=== PATIENT | female | born 1970 | race Caucasian/White ===

== ENCOUNTER 2018-08-05 07:15 | Day surgery (SDC) | payer BC, SELFPAY ==
[2018-08-05 07:34] VITALS: BP 120/69; PULSE 72; RESP 16; TEMP 36.7; O2SAT 96
[2018-08-05] MEDS: Povidone-Iodine Soln. 118 ML BTL TP (07:55)
[2018-08-05] MEDS: Lactated Ringers 1,000 ML 80 ML IV (07:56)
[2018-08-05] MEDS: Lidocaine 1% Pres-Free 5 ML VIAL (09:28)
[2018-08-05] MEDS: Bupivacaine 0.25% Pres-Free 30 ML VIAL (09:28)
[2018-08-05] MEDS: Dexamethasone 4 MG/ML VIAL (10:31)
--- NOTE | 2018-08-05 10:42 | W.PM.DSUDISC ---
Discharge Plan Disposition Patient Disposition: HOME Condition: Good Discharge Details Reason For Visit: bunionectomy Attending Provider: Nirmal Navarro Primary Care Provider: OMER COELHO Home Meds and New Rx's Prescriptions: No Action spironolactone 100 mg Tablet 200 mg PO DAILY RF: 0 omeprazole 40 mg Capsule,Delayed Release(Dr/Ec) 20 mg PO DAILY RF: 0 bismuth subsalicylate 262 mg Tablet 3 tab PO DIRECTED PRNRF: 0 cholecalciferol (vitamin D3) [Vitamin D3] 400 unit Capsule 400 RF: 0 Discharge Orders Discharge Orders: Discharge Order (Routine); Ordered 08/05/18 Ordered By: Nirmal Navarro DS: Diagnosis Discharge Diagnosis (1) Hallux valgus (acquired), left foot: Status: Acute
[2018-08-05] MEDS: HYDROcodone 5/Acetaminophen 325 TAB PO (11:05)
[2018-08-05 11:19] VITALS: BP 100/60; PULSE 69; RESP 14; TEMP 36.3; O2SAT 96
--- NOTE | 2018-08-05 11:27 | ROE_ITS ---
DATE OF PROCEDURE: August 05, 2018 PREOPERATIVE DIAGNOSIS: Symptomatic left bunion deformity. POSTOPERATIVE DIAGNOSIS: Same. PROCEDURE: Thee-type bunionectomy with internal screw fixation utilizing Synthes 2.7 and a 3.5 cor tical screw. SURGEON: Hermila LehmanPFerdinand. ANESTHESIA: Monitored Anesthesia Care; local block first ray. ANESTHESIA PROVIDER: Christopher Davila CRNA OPERATIVE INDICATIONS: 47-year-old female with progressive pain associated with a left bunion deform ity interfering with shoe gear and comfortable ambulation. Nonsurgical treatment has failed to provi de lasting relief of symptoms. She understands risks and complications pertaining to pain, scarring, infection, stiffness of the joint, overcorrection, undercorrection, malunion, nonunion, delayed unio n of the osteotomy, difficulty with the software loosening potentially requiring its removal, revisio nal procedures. Informed consent has been obtained. No promises made to final outcome of surgery. REPORT OF OPERATION: Maria Elena was brought to the operative suite, placed in the supine position, left foot prepped and draped in the usual sterile podiatric fashion. Anesthesia being achieved, the left foot was exsanguinated, well-padded ankle tourniquet inflated 250 mmHg. Attention was directed to the dorsal aspect of the first MPJ where a 5 cm incision was made medial pa rallel to the EHL tendon. The incision was deepened in controlled depth fashion; hemostasis acquired with electrocautery as needed. Dissection was carried down to the joint capsule. A medial capsulo rrhaphy was performed, inverted-L format. The joint capsule was opened. The first MPJ was inspected . Hypertrophy was appreciated along the medial and dorsal aspects of the first metatarsal head. Wit h power instrumentation this hypertrophy was resected. At this time a lateral dissection was perform ed and a lateral capsulotomy and adductor tendon release performed. Attention was directed medially to the first metatarsal head where an offset V-osteotomy was performed. The head was translocated la terally, impacted, stabilized with a .045 K-wire. Fixation was achieved with a 2.7 Synthes cortical screw, 16 mm in length. A second screw was thrown, spun out, and I went to a 3.5 Synthes cortical sc rew with excellent stability. The temporary K-wire was removed. The medial shelf was resected; all rough and bony edges rasped smooth. Copious irrigation was performed. The joint capsule was closed with simple interrupted suture #3-0 Vicryl. The subcutaneous layer was closed with simple interrupte d suture #4-0 Vicryl. The subcuticular layer was closed with a continuous running #4-0 Monocryl. Taveras lf-inch Steri-Strips were applied over Mastisol. Four milligrams of Dexamethasone Phosphate was infu sed deeply into the wound. Xeroform gauze fluff compression dressings were applied. The tourniquet was released at fifty-seven minutes, vascularity returning immediately to all toes. Sharp and sponge counts were correct. The patient left the OR with vital signs stable, vascular status intact. She will be followed by me in the office next week.
== END 2018-08-05 11:43 | disposition home or self-care (01) ==
PROVIDERS: PCP Registered Nurse; Visit Provider Podiatrist
PROC: (CPT 28292; principal; 2018-08-05 09:30)
DX: M20.12 Hallux valgus (acquired), left foot (principal); M21.612 Bunion of left foot; M79.672 Pain in left foot
CPT/HCPCS: 28296; J0690; J1100; J2405

== ENCOUNTER 2019-02-07 15:07 | Outpatient (REF) | payer BC, SELFPAY ==
[2019-02-07 21:49] LABS: ALT 62 U/L (12-78); AST 33 U/L (15-37); Albumin 4.1 g/dL (3.4-5.0); Alkaline Phosphatase 96 U/L (46-116); Anion Gap 9.8 mmol/L (3-11); BUN 14 mg/dL (7-18); Bilirubin, Total 0.5 mg/dL (0.2-1.0); CO2 27.2 mmol/L (21.0-32.0); CREATININE 0.92 mg/dL (0.55-1.02); Calcium 9.1 mg/dL (8.5-10.1); Chloride 102 mmol/L (98-107); Cholesterol 276 mg/dL (50-200); Glucose 84 mg/dL (70-100); HDL Cholesterol 43 mg/dL (40-60); LDL CHOLESTEROL 180 mg/dL (<100); Potassium 4.2 mmol/L (3.5-5.1); Sodium 139 mmol/L (136-145); Total Protein 7.6 g/dL (6.4-8.2); Triglyceride 321 mg/dL (30-150)
== END 2019-02-07 15:27 ==
LOC: NCHCN 15:07
PROVIDERS: PCP Registered Nurse; Visit Provider Registered Nurse
DX: K29.50 Unspecified chronic gastritis without bleeding (principal); E28.2 Polycystic ovarian syndrome; E66.9 Obesity, unspecified
CPT/HCPCS: 80053; 80061; 83721; 83735

== ENCOUNTER 2019-08-02 11:49 | Outpatient (REF) | payer BC, SELFPAY | END 2019-08-02 12:09 | LOC: NCHCN 11:49 | PROVIDERS: PCP Registered Nurse; Visit Provider Registered Nurse | DX: R53.83 Other fatigue (principal) | CPT/HCPCS: 82306 ==

== ENCOUNTER 2019-09-29 10:32 | Outpatient (REF) | payer BC, SELFPAY ==
[2019-10-01 10:12] LABS: Vitamin D 25 Total 30.8 ng/ml (30-100)
== END 2019-09-29 10:52 ==
LOC: NCHCN 10:32
PROVIDERS: PCP Registered Nurse; Visit Provider Registered Nurse
DX: E55.9 Vitamin D deficiency, unspecified (principal)
CPT/HCPCS: 82306

== ENCOUNTER 2020-06-05 21:24 | Outpatient (REF) | payer BC, SELFPAY ==
[2020-06-05 22:39] LABS: Anion Gap 8.8 mmol/L (3-11); BUN 13 mg/dL (7-18); CO2 27.2 mmol/L (21.0-32.0); CREATININE 0.91 mg/dL (0.55-1.02); Calcium 9.7 mg/dL (8.5-10.1); Chloride 102 mmol/L (98-107); Glucose 92 mg/dL (74-106); Potassium 4.6 mmol/L (3.5-5.1); Sodium 138 mmol/L (136-145)
[2020-06-05 22:50] LABS: Hemoglobin A1C 5.7 % (<5.7)
== END 2020-06-05 21:44 ==
LOC: NCHCN 21:24
PROVIDERS: PCP Registered Nurse; Visit Provider Registered Nurse
DX: Z00.00 Encounter for general adult medical examination without abnormal findings (principal); R53.83 Other fatigue; E66.9 Obesity, unspecified
CPT/HCPCS: 80048; 83036

== ENCOUNTER 2020-09-25 12:43 | Day surgery (SDC) | payer BC, SELFPAY ==
[2020-09-25 12:47] VITALS: BP 121/79; PULSE 70; RESP 18; TEMP 36.1; O2SAT 98
[2020-09-25] MEDS: Lactated Ringers 1,000 ML 80 ML IV (13:22)
[2020-09-25] MEDS: ceFAZolin 1 GM/50 ML BAG IVPB (14:26)
[2020-09-25] MEDS: Dexamethasone 4 MG/ML VIAL (14:53)
[2020-09-25] MEDS: Bupivacaine 0.5% Pres-Free 30 ML VIAL (14:53)
--- NOTE | 2020-09-25 15:02 | W.PM.DSUDISC ---
Discharge Plan Disposition Patient Disposition: HOME Condition: Good Discharge Details Reason For Visit: Removal of symptomatic hardware left first metatar Attending Provider: Nirmal Navarro Primary Care Provider: OMER COELHO Home Meds and New Rx's Prescriptions: Continued spironolactone 100 mg Tablet 200 mg PO DAILY RF: 0 omeprazole 40 mg Capsule,Delayed Release(Dr/Ec) 20 mg PO DAILY RF: 0 cholecalciferol (vitamin D3) [Vitamin D3] 400 unit Capsule 400 unit PO DAILY RF: 0 ibuprofen 600 mg Tablet 600 mg PO QID PRNRF: 0 albuterol 90 mcg/actuation Aerosol 180 mcg INHALATION Q4H PRN PRNRF: 0 Discharge Instructions Activity:: Elevate Remove Dressings/Wound Care:: Do Not Remove Shower/Bathe:: Cover Diet:: Normal Diet Discharge Orders Discharge Orders: Discharge Order (Routine); Ordered 09/25/20 Ordered By: Nirmal Navarro DS: Diagnosis Discharge Diagnosis (1) Fixation hardware in foot: Status: Acute
--- NOTE | 2020-09-25 15:06 | W.PM.OP ---
Date of service: 09/25/20 Time of Service: 15:06 Operative Note Operative Note DATE OF PROCEDURE: 09/25/20 PRE-OP DIAGNOSIS: Symptomatic hardware first metatarsal left foot PROCEDURE: Removal of Synthes cortical screws 3.11 2.7 mm first metatarsal left foot SURGEON: Nirmal Navarro ANESTHESIA: local ESTIMATED BLOOD LOSS: 1 PATHOLOGY: none sent TOURNIQUET TIME: 0 COMPLICATIONS: None Patient was transported to: same day Patient's condition: stable Indications: 49-year-old female approximately 2 years status post bunionectomy of the left foot with retained cortical screws which are causing discomfort interfering with ambulation and shoe gear. She is opted for removal of the hardware. She understands potential risk and complications pertaining to pain, scarring, infection, persistent discomfort in the region. Informed consents been obtained no promises made as to the final outcome of surgery. Procedure Description: Maria Elena was brought to the operative suite placed in supine position with the left foot was prepped and draped in the usual sterile podiatric fashion. Anesthesia was obtained using a total of 9 cc 1% lidocaine with epinephrine and 0.5% Marcaine plain. A 1 cm incision was placed midline over the first metatarsal at the surgical neck level. The incision was deepened in controlled depth fashion. Hemostasis was acquired with compression. A Lawrence elevator was then used to remove the periosteum from the neck of the first metatarsal and the hardware was identified. Both screws were removed without difficulty. The wound was copiously irrigated. The subcutaneous layer was repaired with simple interrupted suture 4-0 Vicryl and the skin was coapted with a combination of horizontal mattress and simple interrupted suture of 4-0 nylon. 4 mg dexamethasone phosphate was infused deeply within the wound. Xeroform gauze fluff compression dressings were applied. Maria Elena left the OR with vital signs stable vascular status intact, sharps and sponge counts were correct. She will be followed by myself in the office next week.
== END 2020-09-25 15:30 | disposition home or self-care (01) ==
PROVIDERS: PCP Registered Nurse; Visit Provider Podiatrist
PROC: (CPT 20680; principal; 2020-09-25 14:15)
DX: T84.84XA Pain due to internal orthopedic prosthetic devices, implants and grafts, initial encounter (principal); M79.672 Pain in left foot
CPT/HCPCS: 20680; J0690; J1100

== ENCOUNTER 2020-12-16 09:28 | Outpatient (REF) | payer BC, SELFPAY ==
[2020-12-16 13:47] LABS: Hemoglobin A1C 5.5 % (<5.7)
== END 2020-12-16 09:29 | disposition home or self-care (01) ==
LOC: NCHCN 09:28
PROVIDERS: PCP Registered Nurse; Visit Provider Registered Nurse
DX: R73.03 Prediabetes (principal)
CPT/HCPCS: 83036

== ENCOUNTER 2021-03-26 10:24 | Outpatient (REF) | payer BC, SELFPAY ==
[2021-03-26 13:40] LABS: ALT 35 U/L (14-59); AST 23 U/L (15-37); Albumin 4.1 g/dL (3.4-5.0); Alkaline Phosphatase 85 U/L (46-116); BUN 16 mg/dL (7-18); Bilirubin, Total 0.3 mg/dL (0.2-1.0); CREATININE 0.9 mg/dL (0.55-1.02); Calcium 9.3 mg/dL (8.5-10.1); Calculated LDL 185 mg/dL (<100); Chloride 105 mmol/L (98-107); Cholesterol 273 mg/dL (<200); Glucose 98 mg/dL (74-106); HDL Cholesterol 50 mg/dL (40-60); Potassium 4.4 mmol/L (3.5-5.1); Sodium 141 mmol/L (136-145); Total Protein 7.6 g/dL (6.4-8.2); Triglyceride 193 mg/dL (<150)
[2021-03-26 13:58] LABS: Amylase 51 U/L (25-115); Lipase 102 U/L (73-393)
== END 2021-03-26 10:25 | disposition home or self-care (01) ==
LOC: NCHCN 10:24
PROVIDERS: PCP Registered Nurse; Visit Provider Registered Nurse
DX: Z00.00 Encounter for general adult medical examination without abnormal findings (principal); R10.9 Unspecified abdominal pain; Z13.220 Encounter for screening for lipoid disorders
CPT/HCPCS: 80053; 80061; 83690; 82150

== ENCOUNTER 2022-05-14 16:13 | Outpatient (REF) | payer BC, SELFPAY ==
[2022-05-14 22:00] LABS: Hemoglobin A1C 5.8 % (<5.7)
[2022-05-14 22:05] LABS: ALT 32 U/L (14-59); AST 20 U/L (15-37); Albumin 4.1 g/dL (3.4-5.0); Alkaline Phosphatase 88 U/L (46-116); Anion Gap 10.9 mmol/L (3-11); BUN 16 mg/dL (7-18); Bilirubin, Total 0.3 mg/dL (0.2-1.0); CO2 26.1 mmol/L (21.0-32.0); Calcium 9.3 mg/dL (8.5-10.1); Calculated LDL 195 mg/dL (<100); Chloride 103 mmol/L (98-107); Cholesterol 288 mg/dL (<200); Estimated GFR 58.93 (mL/min/1.73m2); Glucose 93 mg/dL (74-106); HDL Cholesterol 43 mg/dL (40-60); Sodium 140 mmol/L (136-145); Total Protein 7.5 g/dL (6.4-8.2); Triglyceride 250 mg/dL (<150)
[2022-05-18 11:40] LABS: Hepatitis C Ab w Rflx HCV PCR Negative (Negative)
== END 2022-05-14 16:14 | disposition home or self-care (01) ==
LOC: NCHCN 16:13
PROVIDERS: PCP Registered Nurse; Visit Provider Registered Nurse
DX: R73.03 Prediabetes (principal); E78.00 Pure hypercholesterolemia, unspecified; Z11.59 Encounter for screening for other viral diseases; H81.09 Meniere's disease, unspecified ear
CPT/HCPCS: 80053; 80061; 86803; 83036

== ENCOUNTER 2022-08-18 13:48 | Outpatient (REF) | payer BC, SELFPAY ==
[2022-08-18 14:48] LABS: Calculated LDL 100 mg/dL (<100); Cholesterol 192 mg/dL (<200); HDL Cholesterol 48 mg/dL (40-60); Triglyceride 222 mg/dL (<150)
== END 2022-08-18 13:49 | disposition home or self-care (01) ==
LOC: NCHCN 13:48
PROVIDERS: PCP Registered Nurse; Visit Provider Registered Nurse
DX: E78.5 Hyperlipidemia, unspecified (principal)
CPT/HCPCS: 80061

== ENCOUNTER 2023-06-09 11:36 | Outpatient (REF) | payer BC, SELFPAY ==
[2023-06-09 16:01] LABS: Anion Gap 8.2 mmol/L (3-11); BUN 17 mg/dL (7-18); CO2 26.8 mmol/L (21.0-32.0); CREATININE 1.1 mg/dL (0.55-1.02); Calcium 9.3 mg/dL (8.5-10.1); Calculated LDL 100 mg/dL (<100); Chloride 101 mmol/L (98-107); Cholesterol 184 mg/dL (<200); Estimated GFR 61.22 (mL/min/1.73m2); Glucose 99 mg/dL (74-106); HDL Cholesterol 49 mg/dL (40-60); Potassium 4.4 mmol/L (3.5-5.1); Sodium 136 mmol/L (136-145); Triglyceride 176 mg/dL (<150)
[2023-06-09 16:13] LABS: Hemoglobin A1C 5.7 % (<5.7)
== END 2023-06-09 11:37 | disposition home or self-care (01) ==
LOC: NCHCN 11:36
PROVIDERS: PCP Registered Nurse; Visit Provider Nurse Practitioner Family
DX: E28.2 Polycystic ovarian syndrome (principal); Z00.00 Encounter for general adult medical examination without abnormal findings
CPT/HCPCS: 80048; 80061; 83036

== ENCOUNTER 2023-10-26 16:10 | Outpatient (REF) | payer BC, SELFPAY ==
[2023-10-26 22:07] LABS: HCT 43.4 % (36.0-46.0); HGB 14.6 g/dL (11.2-15.7); MCHC 33.6 % (32.0-36.0); MCV 89 fL (80-95); MPV 9.6 fL (8.0-11.0); Platelet Count 340 10^3/uL (130-400); RBC 4.86 10^6/uL (3.93-5.22); RDW 12.8 % (11.7-14.6); RDW-SD 42.1 fL; WBC 11.36 10^3/uL (4.4-10.8)
[2023-10-26 22:28] LABS: ALT 45 U/L (14-59); AST 27 U/L (15-37); Albumin 4.3 g/dL (3.4-5.0); Alkaline Phosphatase 101 U/L (46-116); Anion Gap 12.6 mmol/L (3-11); BUN 13 mg/dL (7-18); Bilirubin, Total 0.5 mg/dL (0.2-1.0); CO2 24.4 mmol/L (21.0-32.0); Calcium 9.9 mg/dL (8.5-10.1); Chloride 104 mmol/L (98-107); Creatine Kinase 137 U/L (26-192); Estimated GFR 68.63 (mL/min/1.73m2); Glucose 104 mg/dL (74-106); LDH 212 U/L (81-234); Potassium 4.1 mmol/L (3.5-5.1); Sodium 141 mmol/L (136-145); Total Protein 8.2 g/dL (6.4-8.2)
[2023-10-27 17:45] LABS: Rheumatoid Factor <8.6 IU/mL (<12.0)
[2023-10-28 09:06] LABS: Cyclic Citrullinated Peptide <2.5 U/mL (<5.0)
[2023-10-28 12:53] LABS: ANA Interpretation Negative (Negative)
== END 2023-10-26 16:11 | disposition home or self-care (01) ==
LOC: NCHCN 16:10
PROVIDERS: PCP Registered Nurse; Visit Provider Nurse Practitioner Family
DX: M13.0 Polyarthritis, unspecified (principal)
CPT/HCPCS: 80053; 82550; 85027; 86200; 83615; 86038; 86431

== ENCOUNTER 2023-10-29 12:21 | Outpatient (REF) | payer BC, SELFPAY ==
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
--- OUTSIDE RECORDS SUMMARY | 2023-10-29 12:23 | XMS_ITS | CCD ---
Author Name Unknown Address [address] [place] [address] [phone] Organization Unknown Address [address], [place] [id number] Care Team Providers Care Ict Security Specialist Name Role Phone YRN SANTOS Attending Physician [phone] SCOUT PERRY Er Physician [phone] RYAN Colon Registered Nurse [phone] PHILLIP Cleaning Registered Nurse [phone] Vital Signs Vital Sign Value Unit Date/Time Recent/Initial ? BMI (Body Mass Index) 39.31 kg/m^2 01/30/2023 18: 47 Initial VS Weight Measured 251 lbs 01/30/2023 18:47 Ini tial VS Height 67 in 01/30/2023 18:47 Initial VS BSA (Body Surface Area) 2.32 m^2 01/30/2023 1 8:47 Initial VS BP Systolic 131 mmHg 01/30/2023 18:47 Initial VS BP Diastolic 71 mmHg 01/30/2023 18:47 Initia l VS Respiratory Rate 18 bpm 01/30/2023 18:47 In itial VS Heart Rate 81 bpm 01/30/2023 18:47 Initial VS O2 % BldC Oximetry 99 % 01/30/2023 18:47 Initial VS Body Temperature 36 degrees 01/30/2023 18:47 In itial VS BP Systolic 116 mmHg 01/30/2023 20:32 Most Re cent VS BP Diastolic 93 mmHg 01/30/2023 20:32 Most R ecent VS Respiratory Rate 20 bpm 01/30/2023 20:[address] Recent VS Heart Rate 90 bpm 01/30/2023 20:32 Most Rec ent VS O2 % BldC Oximetry 97 % 01/30/2023 20:32 Most Recent VS Allergies Allergy Code Allergy Type Reaction Status [facility] 7393 Drug allergy SWELLING Active Procedures Unknown or Not Available. History of Immunizations Unknown or Not Available. Problems Unknown or Not Available. Results Unknown or Not Available. Active Medications Medications Administered During Visit Medication Dose Units Frequency Route Date/Time of Last Dose DIAZEPAM TABLET: 5MG 10 MG X1 PO 01/30/2023 20:30 PredniSONE TABLET: 20MG 40 MG X1 PO 01/30/2023 20:30 Encounters Encounter Diagnosis Diagnosis Code Start Date Low back pain [id number] 01/30/2023 Social History Smoking Status Code Start Date End Date Former smoker [id number] Patient Decision Aids Unknown or Not Available. Discharge Instructions You were admitted to on 01/30/2023 18:32 with a principal diagnosis of Low back pain, unspecified You were discharged from on 01/30/2023 20:32 Should you have any questions prior to discharge, please contact a member of your healthcare team. If you have left the hospital and have any questions, please contact your primary care physician. Chief Complaint and Reason For Visit Chief Complaint Date of Onset LOWER BACK PAIN Function Status Unknown or Not Available. Plan of Care Unknown or Not Available. Referral/Transition of Care Unknown or Not Available.
[2023-11-01 16:03] LABS: ANA Interpretation Negative (Negative)
== END 2023-10-29 12:22 | disposition home or self-care (01) ==
LOC: NCHCN 12:21
PROVIDERS: PCP Registered Nurse; Visit Provider Nurse Practitioner Family
DX: M13.0 Polyarthritis, unspecified (principal)
CPT/HCPCS: 86038

== ENCOUNTER 2024-06-12 02:07 | Outpatient (CLI) | payer BC, SELFPAY ==
--- NOTE | 2024-06-12 13:26 | TELEFU_ITS ---
Date of service: 06/12/24 Time of Service: 11:30 Nutrition Note NOTE: Maria Elena referred for nutrition appt for IBS. Maria Elena also adds that she is on the line for PCOS. She states IBS sx more related to diarrhea than constipation but can go back and forth. States She has been dealing with GI distress since her daughter was 4 years old (she is currently almost 30 year old now). She currenlty takes vitamin D3 daily (1,000IU BID) and vitamin C sometimes. She denies true food allergies. She states she has been unsuccessful identifying trigger foods consistently, although she points out she cannot tolerate eggs (unless cooked in a dish) and cinnamon was found to give her heartburn. Maria Elena states she kept a journal of food choices and sx while she was more involved with GI at [facility] [place]. She trialed a low FODMAP diet which she states was no help at all. She shares she rarely goes out to eat due to anxiety about having accidents. She comes in to today's visit in fasted state (at 1130am) for the same reason - did not want to chance any emergency bathroom needs. She does not use sugar free items and also avoids fat-free items as she knows they can be higher in added sugars. She drinks a 16oz water bottle multiple times per day. Breakfast meal is often skipped or least likely if she has to go out of the house. Yesterday for lunch was homemade pesto pizza and supper was delicatta squash with chicken and potato stew. Might snack on dried tracey, potato chips (not often per Maria Elena) and these peanut butter waffer bars. Reviewed with Maria Elena that another go at a diary that lists times/items eaten and time and severity of sx's to help look at common foods that affect her. With her diet recall, many of the foods could contribute to or exacerbate GI sensitivities (garlic in her pesto, tracey for instance). Encouraged a somewhat repetitious diet to get in a patter of tolerating her food choices. If same foods are tolerated sometimes and not others, there could be a stress/anxiety component that predominates. Suggested avoiding distractions at eating times - come up with ritual for breathing and destressing prior to eating. Offered some education on managing symptoms of diarrhea and constipation with lower fiber and higher fiber diet respectively. Suggested she could also take a break when sx's are less magaeable and try clear liquids for 24-48 hours to help rest gut and reset before starring with low residue and increasing again - can also try collagen protein and glutamine for gut health as well as help rule out gut permaability concerns with Zonulin lab test. Maria Elena left with my card to call with any questions or need for more resources. I plan to call in about a month's time to check on symptoms and how diet management is going. Time Spent in Nutritional Counseling and Treatment: 45 min
== END 2024-06-12 02:08 | disposition home or self-care (01) ==
LOC: DS 02:07
PROVIDERS: PCP Registered Nurse; Visit Provider Dietitian, Registered
DX: K58.8 Other irritable bowel syndrome (principal)
CPT/HCPCS: 00123; 97802

== ENCOUNTER 2024-10-27 13:20 | Outpatient (REF) | payer BC, SELFPAY ==
[2024-10-27 15:29] LABS: ALT 44 U/L (14-59); AST 26 U/L (15-37); Albumin 3.9 g/dL (3.4-5.0); Alkaline Phosphatase 97 U/L (46-116); Anion Gap 5.4 mmol/L (3-11); BUN 9 mg/dL (7-18); Bilirubin, Total 0.58 mg/dL (0.2-1.0); CO2 30.6 mmol/L (21.0-32.0); Calcium 9.4 mg/dL (8.5-10.1); Calculated LDL 199 mg/dL (<100); Chloride 104 mmol/L (98-107); Cholesterol 288 mg/dL (<200); Estimated GFR 68.21 (mL/min/1.73m2); Glucose 99 mg/dL (74-106); HDL Cholesterol 52 mg/dL (40-60); Potassium 4.6 mmol/L (3.5-5.1); Sodium 140 mmol/L (136-145); Total Protein 7.8 g/dL (6.4-8.2); Triglyceride 188 mg/dL (<150)
== END 2024-10-27 13:21 | disposition home or self-care (01) ==
LOC: NCHCN 13:20
PROVIDERS: PCP Registered Nurse; Visit Provider Nurse Practitioner Family
DX: Z00.00 Encounter for general adult medical examination without abnormal findings (principal)
CPT/HCPCS: 80053; 80061